=== PATIENT | male | born 1955 | race Hispanic/Latino ===

== ENCOUNTER → 2022-04-29 | Outpatient (CLI) | payer MEDICARE | END | disposition home or self-care (01) | LOC: RAH 12:09 | PROVIDERS: ATTEND Physical Medicine & Rehabilitation | DX: M19.012 Primary osteoarthritis, left shoulder (principal); M25.512 Pain in left shoulder; M54.12 Radiculopathy, cervical region; M47.22 Other spondylosis with radiculopathy, cervical region | CPT/HCPCS: 72050; 73030 ==

== ENCOUNTER → 2023-12-11 | Outpatient (CLI) | payer MEDICARE ==
[~2023-12-11] MED LIST: GADOTERATE MEGLUMINE 10 MMOL/20 ML VIAL IV ONE
== END | disposition home or self-care (01) ==
LOC: RAH 10:00
PROVIDERS: ATTEND Physical Medicine & Rehabilitation
DX: S76.019A Strain of muscle, fascia and tendon of unspecified hip, initial encounter (principal); M47.819 Spondylosis without myelopathy or radiculopathy, site unspecified; X58.XXXA Exposure to other specified factors, initial encounter; Y93.89 Activity, other specified; Y92.89 Other specified places as the place of occurrence of the external cause; Y99.8 Other external cause status
CPT/HCPCS: 72197; A9575

== ENCOUNTER 2024-02-26 14:00 | Observation (INO) | payer MEDICARE ==
[~2024-02-26] VITALS: Ht 170.2 cm; Wt 80.0 kg
[2024-02-26 14:22] VITALS: BP 159/95; PULSE 66; RESP 19
[2024-02-26 14:28] LABS: BASOPHILS # (AUTO) 0.07 K/uL (0.00-0.20); BASOPHILS % (AUTO) 0.8 % (0.0-5.0); EOSINOPHILS # (AUTO) 0.13 K/uL (0.00-0.70); EOSINOPHILS % (AUTO) 1.6 % (0.0-8.0); HEMATOCRIT 46.8 % (42-54); IMMATURE GRANULOCYTE ABSOLUTE 0.05 K/uL (0-1); LYMPHOCYTES # (AUTO) 2.5 K/uL (1.0-4.8); LYMPHOCYTES % (AUTO) 30.3 % (21.0-51.0); MEAN CORPUSCULAR HEMOGLOBIN 27.2 pg (27.0-33.0); MEAN CORPUSCULAR HGB CONC 31.8 g/dL (32.0-36.0); MEAN CORPUSCULAR VOLUME 85.4 fL (79-99); MONOCYTES # (AUTO) 0.8 K/uL (0.1-1.0); MONOCYTES % (AUTO) 9.4 % (3.0-13.0); NEUTROPHILS # (AUTO) 4.8 K/uL (1.8-7.7); NEUTROPHILS % (AUTO) 57.3 % (40.0-77.0); PLATELET COUNT (AUTO) 259 K/uL (130-400); RED BLOOD CELL COUNT(AUTO) 5.48 MIL/uL (4.50-6.20); RED CELL DISTRIBUTION WIDTH 13.8 % (11.0-15.5); WHITE BLOOD COUNT (AUTO) 8.3 K/uL (4.8-10.8)
[2024-02-26] MEDS ORDERED: SECU150P2 SQ (14:39)
[2024-02-26 14:41] LABS: INR <= 0.93 (0.85-1.15); PROTHROMBIN TIME 10.5 SEC (9.6-11.6)
[2024-02-26 14:43] LABS: PARTIAL THROMBOPLASTIN TIME 26.8 SEC (26.3-35.5)
[2024-02-26 14:49] LABS: ALBUMIN 4.2 g/dL (3.5-5.0); CARBON DIOXIDE 29 mmol/L (21-32); CHLORIDE 103 mmol/L (101-111); GLOMERULAR FILTR. RATE CALC 81 mL/min (>90); GLUCOSE,RANDOM 97 mg/dL (70-105); POTASSIUM 4.5 mmol/L (3.5-5.1); SODIUM SERUM 138 mmol/L (136-145); UREA NITROGEN, BLOOD 14 mg/dL (7-18)
[2024-02-26] MEDS ORDERED: ATOR20TA65 PO (15:09)
[2024-02-26] MEDS ORDERED: LISI5TAB21 PO (15:09)
[2024-02-26] MEDS ORDERED: LEVO100C4 PO (15:09)
[2024-03-03] VITALS (26 sets, daily range): BP systolic 83–168; BP diastolic 48–90; PULSE 58–93; RESP 12–20; O2SAT 96–98
[2024-03-03] MEDS: LACTATED RINGERS 1000ML 1,000 ML IV ONE (09:20)
[2024-03-03] MEDS: CEFAZOLIN SODIUM 2 GM VIAL ONE (09:20)
[2024-03-03] MEDS: FAMOTIDINE 20MG VIAL IV ONE (10:20)
[2024-03-03] MEDS: ACETAMINOPHEN 1,000 MG/100 ML VIAL IV ONE (10:20)
[2024-03-03] MEDS ORDERED: ROPIVACAINE 0.5% 5MG/ML 30ML ONE (10:22)
[2024-03-03] MEDS ORDERED: LIDOCAINE PF 100MG/5ML (2%) SYRINGE 5ML ONE (10:24)
[2024-03-03] MEDS ORDERED: FENTANYL CITRATE PF 50 MCG/1 ML 2ML VIAL ONE (10:25)
[2024-03-03] MEDS ORDERED: ROCURONIUM BROMIDE 10MG/1ML 5ML VL ONE ×2 (10:25→12:42)
[2024-03-03] MEDS ORDERED: PROPOFOL 10 MG/ML 20ML VIAL IV ONE (10:25)
[2024-03-03] MEDS ORDERED: TRANEXAMIC ACID 1000MG/10ML ONE (10:45)
[2024-03-03] MEDS: 0.9%NACL 10ML VIAL ONE (11:10)
[2024-03-03] MEDS ORDERED: ONDANSETRON 4MG INJ ONE ×2 (12:21→15:05)
[2024-03-03] MEDS ORDERED: DEXAMETHASONE SOD PHOSPHATE 10MG/ML 1ML VIAL ONE (12:21)
[2024-03-03] MEDS: TRANEXAMIC ACID 1000MG/10ML IV ONE ×2 (12:25→15:07)
[2024-03-03] MEDS ORDERED: EPHEDRINE SULFATE 50 MG/ML AMPULE ONE (12:39)
[2024-03-03] MEDS ORDERED: KETAMINE 50MG/ML SYRINGE 50 MG/ML DISP.SYRIN ONE (13:05)
[2024-03-03] MEDS ORDERED: GLYCOPYRROLATE 0.2 MG/ML 5 ML VIAL ONE (15:05)
[2024-03-03] MEDS ORDERED: NEOSTIGMINE METHYLSULFATE 1MG/ML IV ONE (15:05)
[2024-03-03] MEDS ORDERED: POTASSIUM CHLORIDE 10% ELIXIR 20 MEQ/15 ML UDCUP PO PRN (15:30)
[2024-03-03] MEDS ORDERED: CEFAZOLIN SODIUM 2 GM VIAL IVPB SCH (15:30)
[2024-03-03] MEDS ORDERED: CALCIUM CARB 500MG PO PRN (15:30)
[2024-03-03] MEDS ORDERED: KCL 20 MEQ ERTAB PO PRN (15:30)
[2024-03-03] MEDS ORDERED: ONDANSETRON 4MG INJ IVP PRN (15:30)
[2024-03-03] MEDS ORDERED: POTASSIUM CHLORIDE 20MEQ/100ML 100 ML IV PRN (15:30)
[2024-03-03] MEDS ORDERED: FERROUS FUMARATE 324 MG TABLET PO PRN (15:30)
[2024-03-03] MEDS: ONDANSETRON 4MG INJ ONE (16:01)
[2024-03-03] MEDS: MEPERIDINE-PF 25 MG/ML SYG ONE ×2 (16:02→16:18)
[2024-03-03] MEDS: 0.9%NACL 1000ML 1,000 ML IV SCH (16:39)
[2024-03-03] MEDS: KETOROLAC 15MG/ML VIAL (15MG/ML) IV SCH (16:40)
[2024-03-03] MEDS: KETOROLAC 15MG/ML VIAL (15MG/ML) ONE (16:43)
[2024-03-03] MEDS: 0.9%NACL 1000ML 1,000 ML IV ONE (16:44)
[2024-03-03] MEDS: ATORVASTATIN 20 MG TABLET PO SCH (20:49)
[2024-03-03] MEDS: CEFAZOLIN SODIUM 2 GM VIAL IVPB SCH (20:49)
[2024-03-03] MEDS: DOCUSATE SODIUM 100 MG CAP PO SCH (20:49)
[2024-03-03] MEDS: LISINOPRIL 5 MG TABLET PO SCH (20:50)
[2024-03-03] MEDS: GABAPENTIN 100 MG CAPSULE PO SCH (20:51)
[2024-03-03] MEDS: HYDROCODONE/ACETAMINOPHEN 5/325 MG TAB PO PRN (20:52)
[2024-03-04] MEDS: TRAMADOL HCL 50 MG TABLET PO PRN (01:18)
[2024-03-04 04:20] LABS: HEMATOCRIT 36.4 % (42-54); MEAN CORPUSCULAR HEMOGLOBIN 27.5 pg (27.0-33.0); MEAN CORPUSCULAR VOLUME 83.3 fL (79-99); RED BLOOD CELL COUNT(AUTO) 4.37 MIL/uL (4.50-6.20); RED CELL DISTRIBUTION WIDTH 13.7 % (11.0-15.5); WHITE BLOOD COUNT (AUTO) 11.9 K/uL (4.8-10.8)
[2024-03-04 04:29] LABS: CREATININE 1.3 mg/dL (0.5-1.3); POTASSIUM 4.2 mmol/L (3.5-5.1)
[2024-03-04] MEDS: LEVOTHYROXINE 100 MCG TABLET PO SCH (05:58)
[2024-03-04] MEDS ORDERED: NON-FORMULARY MEDICATION 1 EACH (Levothyroxine Sodium (Levothyroxine) 100 MCG) PO SCH (07:30)
[2024-03-04 07:59] VITALS: BP 95/62; PULSE 79; RESP 16
[2024-03-04] MEDS: POLYETHYLENE GLYCOL 3350 17 GM POWD.PACK PO SCH (08:40)
[2024-03-04] MEDS: ASPIRIN 325MG EC TAB PO SCH (08:41)
[2024-03-04] MEDS: LISINOPRIL 5 MG TABLET PO SCH (09:11)
[2024-03-04 10:00] VITALS: O2SAT 94
[2024-03-04 11:41] VITALS: BP 92/55; PULSE 69; RESP 16
[2024-03-04] MEDS: KETOROLAC 15MG/ML VIAL (15MG/ML) IV PRN (15:04)
[2024-03-04 16:00] VITALS: BP 119/69; PULSE 74; RESP 17
[2024-03-04 20:00] VITALS: BP 100/82; PULSE 81; RESP 17; O2SAT 99
[2024-03-04] MEDS: HYDROCODONE/ACETAMINOPHEN 5/325 MG TAB PO PRN (20:50)
[2024-03-05] VITALS: BP 127/70; PULSE 88; RESP 16
[2024-03-05] MEDS: CYCLOBENZAPRINE HCL 10 MG TABLET PO PRN (02:14)
[2024-03-05 04:00] VITALS: BP 126/65; PULSE 66; RESP 16
[2024-03-05 08:00] VITALS: BP 132/69; PULSE 80; RESP 16; O2SAT 99
[2024-03-05 12:00] VITALS: BP 114/66; PULSE 85; RESP 16
[2024-03-05] MEDS ORDERED: DOCU-116 PO (14:51)
[2024-03-05] MEDS ORDERED: ACET-2079 PO (14:51)
[2024-03-05] MEDS ORDERED: ASPI-891 PO (14:51)
[2024-03-05] MEDS ORDERED: CYCL-309 PO (14:51)
[2024-03-05 16:00] VITALS: BP 142/78; PULSE 82; RESP 16
[2024-03-06] MEDS ORDERED: BISACODYL 10 MG SUPP.RECT RC PRN (15:30)
== END 2024-03-05 18:05 | disposition home health service (06) ==
LOC: DAHIP 03-03 08:20 → 4BH 03-03 17:00
PROVIDERS: ADMIT Student in an Organized Health Care Education/Training Program; ATTEND Student in an Organized Health Care Education/Training Program
DX: M87.9 Osteonecrosis, unspecified (principal); M76.32 Iliotibial band syndrome, left leg; M70.62 Trochanteric bursitis, left hip; D62 Acute posthemorrhagic anemia; E03.9 Hypothyroidism, unspecified; I10 Essential (primary) hypertension; I95.89 Other hypotension; E78.00 Pure hypercholesterolemia, unspecified; L40.50 Arthropathic psoriasis, unspecified; Z79.899 Other long term (current) drug therapy
CPT/HCPCS: 82040; 80048 ×2; 85025; 85610; 85730; 84134; 86140; 36415 ×2; 87641; 96376 ×2; 96365; 96375; 73503; 64450; 27130; 82948 ×8; 73521; 96366; 85027; 97161; 97116 ×3; 97530 ×6; G0378 ×50; G0379; A4663; C1776; J7120; J3490 ×9; J3010; J1100; J7030 ×2; J2001; J2704; J2405 ×3; J2710; J2175 ×2; J2795; J1885 ×4; J0690 ×4; A4649 ×3; G0168; A6255; A5120; A4215; A4223; A4222; A4221